=== PATIENT | female | born 1960 | race Caucasian/White ===

== ENCOUNTER 2019-01-26 19:23 | Emergency (ER) | payer OTHER ==
[2019-01-26 19:38] VITALS: BP 119/69; PULSE 92; BMI 32.2
[2019-01-26] MEDS ORDERED: IBUPROFEN 600 MG TABLET (FP) PO ONE ×2 (20:06→20:22)
--- NOTE | 2019-01-26 20:10 | PDOC ---
History of Present Illness - General Chief Complaint: Edema Stated Complaint: INJURY Time Seen by Provider: 01/26/19 20:05 History Source: Patient Exam Limitations: No Limitations - History of Present Illness Initial Comments: 01/26/19 20:08 HISTORY OF PRESENT ILLNESS: This 58-year-old woman past medical history of osteoporosis presents emergency department for evaluation of left wrist pain after carrying multiple grocery bags on her wrist at one time. Patient states she had 4 bags on her wrist filled with hand goods after coming home from the grocery store. She was concerned her with back to carry these so she put multiple based on her wrist. Patient reported increased pain to her wrist after removing the grocery bags. Patient has not taken anything for pain. No recent travel or sick contacts. PAST MEDICAL HISTORY: see HPI SURGICAL HISTORY: Denies ALLERGIES: No known drug allergies REVIEW OF SYSTEMS General/Constitutional: Denies fever or chills. Denies weakness, weight change. HEENT: Denies change in vision. Denies ear pain or discharge. Denies sore throat. Cardiovascular: Denies chest pain or shortness of breath. Respiratory: Denies cough, wheezing, or hemoptysis. Gastrointestinal: Denies nausea, vomiting, diarrhea or constipation. Denies rectal bleeding. Genitourinary: Denies dysuria, frequency, or change in urination. Musculoskeletal: see HPI Skin and breasts: Denies rash or easy bruising. Neurologic: Denies headache, vertigo, loss of consciousness, or loss of sensation. Psychiatric: Denies depression or anxiety. Endocrine: Denies increased thirst. Denies abnormal weight change. Hematologic/Lymphatic: Denies anemia, easy bleeding, or history of blood clots. Allergic/Immunologic: Denies hives or skin allergy. Denies latex allergy. PHYSICAL EXAM General Appearance: Well-appearing, appropriately dressed. No apparent distress , no intoxication. Respiratory/Chest: Lungs CTAB. No shortness of breath, chest tenderness, respiratory distress, accessory muscle use. No crackles, rales, rhonchi, stridor , wheezing, dullness Cardiovascular: RRR. S1, S2. No JVD, murmur, bradycardia, tachycardia. Vascular Pulses: Radial (R): 2+, Radial (L): 2+ Musculoskeletal/Extremities: Normal inspection. FROM of all extremities, normal capillary refill. Pelvis Stable. No CVA tenderness. No tenderness to extremities, pedal edema, swelling, erythema or deformity. Integumentary: Appropriate color, dry, warm. No cyanosis, erythema, jaundice or rash Neurologic: apparel fashion designer II-XII intact. Fully oriented, alert. Appropriate mood/affect. Motor strength 5/5. No appreciable EOM palsy, facial droop or sensory deficit. Past History - Past Medical History Allergies/Adverse Reactions: Allergies Allergy/AdvReac Type Severity Reaction Status Date / Time No Known Allergies Allergy Verified 01/26/19 19:32 - Suicide/Smoking/Psychosocial Hx Smoking History: Never smoked *Physical Exam - Vital Signs Last Vital Signs Temp Pulse Resp BP Pulse Ox 92 H 20 119/69 100 01/26/19 19:32 01/26/19 19:32 01/26/19 19:32 01/26/19 19:32 ED Treatment Course - RADIOLOGY Radiology Studies Ordered: Category Date Time Status FOREARM- LEFT [RAD] Stat Radiology 01/26/19 20:06 Ordered WRIST W/HAND-LEFT* [RAD] Stat Radiology 01/26/19 20:06 Ordered Medical Decision Making - Medical Decision Making 01/26/19 20:09 A/P: 58-year-old woman with atraumatic left wrist pain for 1 day Full range of motion with pronation and supination of the wrist. No deformity upon palpation of the bones of the forearm, wrist and hand. X-rays to rule out fracture Motrin 600 mg orally Reassess 01/26/19 20:55 X-rays as read by me: No acute fractures or dislocations are present. No osseous lesions present. Shukri wrap, sling Discharge home *DC/Admit/Observation/Transfer Diagnosis at time of Disposition: Wrist pain, left - Discharge Dispostion Disposition: HOME Condition at time of disposition: Fair Decision to Admit order: No - Referrals Referrals: ON STAFF,NOT [Primary Care Provider] - Dar Bradford MD [Staff Physician] - - Patient Instructions Additional Instructions: REST. Take Tylenol or Motrin as needed for pain. Follow manufacturers instructions for appropriate dosage. Apply ice for 20 minutes and removed for at least 20 minutes before reapplying the ice. Keep Shukri wrap on your wrist as much as possible to help decrease some of the swelling and control pain. Whenever possible keep your hand elevated. You've been given the number for an orthopedist. If symptoms do not resolve within the next 7 days call the orthopedist for further evaluation. Return to emergency department for discoloration of the fingers/hand, numbness or tingling to the fingers/hand, worsening pain, or any other concerns. Thank you very much for choosing us to provide your emergent healthcare needs. [place] [place] Tylenol o Motrin segn sea necesario para el dolor. Siga las instrucciones del fabricante para la dosis apropiada. Aplique hielo dorota 20 minutos y retrelo dorota al menos 20 minutos antes de volver a aplicar el hielo. Mantenga Shukri envoltura en man mueca tanto rich sea posible para ayudar a disminuir la hinchazn y controlar el dolor. Siempre que sea posible mantenga man mano elevada. Te payton dado el nmero de un ortopedista. Si los sntomas no se resuelven en los prximos 7 guadalupe, llame al ortopedista para anjel evaluacin adicional. Regrese al departamento de emergencias para la decoloracin de los dedos / mano , entumecimiento u hormigueo en los dedos / mano, empeoramiento del dolor o cualquier otra inquietud. Muchas gerard por elegirnos para satisfacer raine necesidades de atencin mdica de emergencia. - Post Discharge Activity
[2019-01-26] MEDS ORDERED: KETOROLAC TROMETHAMINE 30 MG/1 ML VIAL IM ONE (20:25)
[2019-01-26] MEDS ORDERED: KETOROLAC TROMETHAMINE 30 MG/1 ML VIAL ONE (20:27)
== END 2019-01-26 21:09 | disposition home or self-care (01) ==
LOC: JERFT 19:23
PROC: 3E0233Z Introduction of Anti-inflammatory into Muscle, Percutaneous Approach (ICD-10-PCS; principal; 2019-01-26)
DX: M25.532 Pain in left wrist (principal)
CPT/HCPCS: 73090-TC-LT-FY; 73110-TC-LT-FY; 73130-TC-LT-FY; 96372; 99281-25